=== PATIENT | female | born 1970 | race Caucasian/White ===

== ENCOUNTER 2023-03-06 13:20 | Emergency (ER) | payer OTHER, SELFPAY ==
--- NOTE | ~2023-03-06 | XR_ITS ---
XR ankle LT min 3V 03/06/2023 14:17 Indication: Left ankle pain after fall at work Procedure: 4 views left ankle Comparison: No prior studies for comparison. Findings: Ankle mortise intact. Mild soft tissue swelling. Talar dome is normal. There are remote pos ttraumatic changes at the medial malleolus. There are degenerative calcaneal enthesophytes. No acute fracture or traumatic malalignment. Impression: 1: No acute bone or joint abnormality. Reviewed, dictated and finalized at location A. Impression: 1: No acute bone or joint abnormality.
--- NOTE | ~2023-03-06 | XR_ITS ---
XR knee LT min 4V 03/06/2023 14:17 Indication: Left knee pain Procedure: 4 views left knee Comparison: No prior studies for comparison. Findings: There is anatomic alignment. No significant joint space narrowing. No fracture, subluxation or dislocation. No joint effusion. Impression: 1: No acute bone or joint abnormality. Reviewed, dictated and finalized at location A. Impression: 1: No acute bone or joint abnormality.
--- NOTE | ~2023-03-06 | XR_ITS ---
XR shoulder RT min 2V 03/06/2023 14:17 Indication: Status post fall. Right shoulder pain. Procedure: 4 views right shoulder Comparison: No prior studies for comparison. Findings: There is anatomic alignment. 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 N o acute fracture, subluxation or dislocation. No soft tissue abnormality. No foreign body. Impression: 1: No acute abnormality of the right shoulder. Reviewed, dictated and finalized at location A. Impression: 1: No acute abnormality of the right shoulder.
[2023-03-06 13:36] VITALS: BP 134/86; PULSE 85; RESP 16; TEMP 36.6; O2SAT 97
--- NOTE | 2023-03-06 13:43 | ED.FALL ---
HPI - Fall General Chief Complaint: Fall Stated Complaint: Left Knee/Ankle/Right Shoulder Time Seen by Provider: 03/06/23 13:43 Source: patient Mode of arrival: ambulatory Limitations: no limitations History of Present Illness HPI Narrative: 53-year-old female presented for complaint of pain to left knee and left ankle, and tingling to right arm intermittently after injury yesterday at work.States she was walking in the parking lot when she stepped on a piece of mulch which caused her to roll the left ankle and fall forward landing on the right arm and right knee. She denies right leg pain. The intermittent ?electric? sensation to the right arm from the shoulder to the wrist occurs with certain movements. She states it feels like her arm is falling asleep at times. States the arm is not painful, describes a 'discomfort' without change to sensation from neck movement. She denies numbness or weakness of the extremity. Endorses left ankle swelling, reports full range of motion, denies bruising. Denies bruising or wounds to the left knee. Has been walking today. She took Tylenol yesterday for pain. She did not take anything for pain today because she wanted to be evaluated without pain medication. Patient denies hitting her head or LOC at the time of injury. Currently denies chest pain, palpitations, and neck pain, headache, dizziness, nausea vomiting. Smokes 1ppd and marijuana. Related Data Allergies Allergy/AdvReac Type Severity Reaction Status Date / Time latex Allergy Rash Verified 03/06/23 13:44 Review of Systems Review of Systems: CONSTITUTIONAL: Denies body aches, fever, chills EYES: Denies visual changes ENT: Denies epistaxis, rhinorrhea, congestion CARDIOVASCULAR: Denies chest pain, palpitations, or edema. RESPIRATORY: Denies cough or dyspnea. GASTROINTESTINAL: Denies abdominal pain, nausea, vomiting, or diarrhea. SKIN: Denies rash, itching, or wounds. MUSCULOSKELETAL: Reports right shoulder, left knee and left ankle pain; Denies neck or back pain NEUROLOGIC: Denies headache, numbness, or weakness. All systems reviewed & are unremarkable except as noted in HPI and below PMFSH Past Medical History Medical History (Updated 03/06/23 @ 14:08 by Sultana Ness, ROSY) No pertinent past medical history Comments At time of signature, I have reviewed and agree with nursing past medical, surgical, social and family history unless otherwise noted. Please see nursing chart for further information. There is no relevant family history pertinent to the presenting complaint Exam Narrative: GENERAL: Well-appearing, in no acute distress. HEAD: Normocephalic, atraumatic. EYES: PERRLA, conjunctivae clear NECK: Supple. full ROM. No VPT. CHEST: Speaks in full sentences. No respiratory distress. HEART: Regular rate and rhythm. Normal and equal peripheral pulses. EXTREMITIES: Bilateral upper extremities with full range of motion at shoulder and elbow, normal strength and sensation bilaterally, pulse palpable and equal bilaterally, skin warm, dry, pink. Capillary refill less than 3 seconds. Right elbow with superficial abrasion. Left ankle and knee with normal strength and sensation, normal range of motion; endorses pain with movement. Mild left ankle swelling and tenderness; no bruising, No swelling or wounds to left knee. No point tenderness. No obvious deformity; alignment normal, pulse palpable and equal bilaterally, skin warm, dry, pink. Capillary refill less than 3 seconds. SKIN: Warm, dry, no rash. NEURO: Alert and oriented x3. PSYCH: anxious, talkative Course Course Emergency Course: Patient is aware of diagnosis, understands and agrees to treatment plan. Anticipatory guidance given. Patient agrees to follow-up as directed and is aware of reasons to seek care at the emergency department. Portions of this record may have been created with voice recognition software Level of Care: Express Care Visit Vital Signs
== END 2023-03-06 14:45 | disposition home or self-care (01) ==
PROVIDERS: Emergency Provider Nurse Practitioner Family
DX: M25.562 Pain in left knee (principal); M25.511 Pain in right shoulder; S93.402A Sprain of unspecified ligament of left ankle, initial encounter; W18.31XA Fall on same level due to stepping on an object, initial encounter
CPT/HCPCS: 73030; 73564; 73610; 99214; G0463